=== PATIENT | female | born 1980 | race African-American/Black ===

== ENCOUNTER 2017-11-06 04:50 | Emergency (ER) | payer MEDICARE, OTHER ==
[~2017-11-06] VITALS: Ht 154.9 cm; Wt 60.3 kg
[~2017-11-06 04:50] MED LIST: NEXIUM5 MG ORAL; NORCO 5-325 TA1 EACH ORAL; NORVASC5 MG ORAL; OXYCODONE HCL10 MG ORAL
[2017-11-06] MEDS ORDERED: ROXICODONE15 MG ORAL (04:52)
[2017-11-06] MEDS ORDERED: XANAX0.25 MG ORAL (04:52)
[2017-11-06] MEDS ORDERED: ADVAIR 100-501 EACH INH (04:52)
[2017-11-06] MEDS ORDERED: Norco 5mg/325mg tab PO ONE (05:15)
[2017-11-06] MEDS ORDERED: Morphine Sulfate 4mg/ml Inj IM ONE (06:30)
[2017-11-06 06:52] VITALS: BP 140/93
--- NOTE | 2017-11-06 12:36 | Diagnostic Imaging Report ---
Indication: Pain in left hip and leg, fell in shower this morning Technique: 2 views of the left hip Comparison: none Findings: There is extensive left hip hardware, including a total hip arthroplasty prosthesis and extensive hardware apparently reducing old healed left-sided pelvic fractures. Hardware appears intact. No definite acute fractures. No dislocations. Impression: No acute bony trauma Postsurgical changes as described This agrees with the preliminary interpretation provided overnight by [facility].
--- NOTE | 2017-11-06 12:37 | Diagnostic Imaging Report ---
Indications: Pain in left hip and leg, fell in shower this morning Technique: Two views of the left femur Comparison: None Findings: Extensive left hip and pelvic surgical hardware is demonstrated. No acute fractures. Impression: No acute bony trauma
--- NOTE | 2017-11-06 12:38 | Diagnostic Imaging Report ---
Indication: Reason For Exam: PAIN Technique: 3 views of the left knee Comparison: None Findings: No acute fractures. No dislocations. No suprapatellar effusion Impression: Negative. This agrees with the preliminary interpretation provided overnight by [facility] service.
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
== END 2017-11-06 06:54 | disposition home or self-care (01) ==
LOC: EDBD 04:50 → EMR 05:04
DX: S70.12XA Contusion of left thigh, initial encounter (principal); W19.XXXA Unspecified fall, initial encounter; Y92.002 Bathroom of unspecified non-institutional (private) residence as the place of occurrence of the external cause; Z88.0 Allergy status to penicillin; F11.20 Opioid dependence, uncomplicated
CPT/HCPCS: 73502; 73552; 73562; 96372; 99284; J2270

== ENCOUNTER 2017-11-07 00:39 | Emergency (ER) | payer MEDICARE, OTHER ==
[~2017-11-07] VITALS: Ht 154.9 cm; Wt 59.0 kg
[~2017-11-07 00:39] MED LIST changes: +ADVAIR 100-501 EACH INH; +ROXICODONE15 MG ORAL; +XANAX0.25 MG ORAL
[2017-11-07 00:42] VITALS: BP 128/84
[2017-11-07] MEDS ORDERED: Albuterol/Ipratropium 3ml neb HHN ONE (01:00)
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
[2017-11-07 01:50] VITALS: BP 121/75
== END 2017-11-07 01:50 | disposition home or self-care (01) ==
LOC: EDBD 00:39 → EMR 00:58
DX: M25.552 Pain in left hip (principal); F11.20 Opioid dependence, uncomplicated; Z76.5 Malingerer [conscious simulation]; Z88.0 Allergy status to penicillin
CPT/HCPCS: 99284

== ENCOUNTER 2018-05-24 05:46 | Emergency (ER) | payer MEDICARE, OTHER ==
[~2018-05-24] VITALS: Ht 154.9 cm; Wt 59.0 kg
[2018-05-24 06:00] VITALS: BP 142/100
--- NOTE | 2018-05-24 06:11 | Emergency Room Report ---
History of Present Illness General Chief Complaint: General Complaint Source: Patient, Medical Record, EMS Present Illness HPI Is a 37-year-old female with history of chronic pain secondary to left hip replacement. She's also has a psychiatric history. She is taking oxycodone and Xanax. She presents with chief complaint of body pain and hip pain. Also complaint of chest pain. Onset for several days. No nausea no vomiting. No fever chills. Nothing made it better. Nothing made it worse. She also believed that someone is trying to hurt her. No suicidal thought homicidal thought. This is similar presentation in complaint as I saw her last time. Allergies: Coded Allergies: PENICILLINS (Verified Allergy, Unknown, 11/07/17) Patient History Past Medical History: see triage record, old chart reviewed Past Surgical History: other Pertinent Family History: none Social History: Denies: smoking Now: No Immunizations: other Reviewed Nursing Documentation: PMH: Agreed; PSxH: Agreed Nursing Documentation-PMH Past Medical History: No History, Except For Hx Hypertension: Yes Hx Diabetes: Yes Hx Gastrointestinal Problems: Yes - Gastric bypass Review of Systems Eye: Denies: eye pain, blurred vision ENT: Denies: ear pain, nose congestion, throat swelling Respiratory: Denies: cough, shortness of breath Cardiovascular: Reports: chest pain; Denies: palpitations Gastrointestinal: Denies: abdominal pain, diarrhea, nausea, vomiting Musculoskeletal: Denies: back pain, joint pain Skin: Denies: rash Neurological: Denies: headache, numbness Endocrine: Denies: increased thirst, increased urine Hematologic/Lymphatic: Denies: easy bruising All Other Systems: negative except mentioned in HPI Physical Exam Vital Signs Date Time Temp Pulse Resp B/P (MAP) Pulse Ox O2 Delivery O2 Flow Rate FiO2 05/24/18 05:46 97.0 108 18 142/100 97 Room Air 97.0 vitals with high blood pressure Sp02 EP Interpretation: reviewed, normal General Appearance: well appearing, no apparent distress, alert Head: normocephalic, atraumatic Eyes: bilateral eye PERRL, bilateral eye EOMI ENT: hearing grossly normal, normal pharynx Neck: full range of motion, supple, no meningismus Respiratory: chest non-tender, lungs clear, normal breath sounds Cardiovascular #1: regular rate, rhythm, no murmur Gastrointestinal: normal bowel sounds, non tender, no mass, no organomegaly, no bruit, non-distended Musculoskeletal: back normal, gait/station normal, normal range of motion Psychiatric: mood/affect normal Skin: warm/dry Medical Decision Making Diagnostic Impression: Primary Impression: Chronic pain Qualified Codes: G89.4 - Chronic pain syndrome Additional Impressions: Chest pain Qualified Codes: R07.9 - Chest pain, unspecified Behavior disorder Opiate dependence Qualified Codes: F11.20 - Opioid dependence, uncomplicated ER Course Patient with chronic pain. No trauma. She is walking without any problem. On the [employer] system she has numerous prescription for Xanax, Lyrica, and oxycodone. Aspirin is also atypical. No evidence of ACS, PE, dissection. Noncardiac in nature. EKG Diagnostic Results Rate: normal Rhythm: NSR ST Segments: no acute changes Rhythm Strip Diag. Results Rhythm Strip Time: 06:11 EP Interpretation: yes Rate: 85 Rhythm: NSR, no PVC's, no ectopy Last Vital Signs Date Time Temp Pulse Resp B/P (MAP) Pulse Ox O2 Delivery O2 Flow Rate FiO2 05/24/18 05:46 97.0 108 18 142/100 97 Room Air 97.0 Status: improved Disposition: HOME, SELF-CARE Condition: Stable Additional Instructions: take your pain medication and Xanax. Follow-up doctor in a week. Return if worse. CHARLOTTE MOELLER M.D. May 24, 2018 06:11
[2018-05-24 06:27] VITALS: BP 148/93
--- NOTE | 2018-05-25 13:54 | Cardiology Report ---
APPROVED REPORT EKG Measurement Heart [id number] NM [id number] Normal sinus rhythm Normal ECG
== END 2018-05-24 06:27 | disposition home or self-care (01) ==
LOC: EDBD 05:46 → EMR 06:05
DX: G89.4 Chronic pain syndrome (principal); R07.9 Chest pain, unspecified; F99 Mental disorder, not otherwise specified; E11.9 Type 2 diabetes mellitus without complications; I10 Essential (primary) hypertension; Z88.0 Allergy status to penicillin; Z98.84 Bariatric surgery status
CPT/HCPCS: 93005; 99283

== ENCOUNTER 2018-05-27 00:28 | Emergency (ER) | payer MEDICARE, OTHER ==
[2018-05-27] VITALS (7 sets, daily range): BP systolic 120–137; BP diastolic 68–84
[~2018-05-27] VITALS: Ht 152.4 cm; Wt 59.0 kg
[2018-05-27 01:12] LABS: BASOPHILS % (AUTO) 1.5 % (0.0-2.0); HEMATOCRIT 38.6 % (37.0-47.0); HEMOGLOBIN 12.4 G/DL (12.0-16.0); LYMPHOCYTES % (AUTO) 31.7 % (20.0-45.0); MEAN CORPUSCULAR VOLUME 96 FL (80-99); MONOCYTES % (AUTO) 7.3 % (1.0-10.0); NEUTROPHILS % (AUTO) 58.5 % (45.0-75.0); PLATELET COUNT 310 K/UL (150-450); RED BLOOD COUNT 4.04 M/UL (4.20-5.40); RED CELL DISTRIBUTION WIDTH 17.8 % (11.6-14.8); WHITE BLOOD COUNT 7.3 K/UL (4.8-10.8)
[2018-05-27 01:15] LABS: BILIRUBIN, URINE NEGATIVE (NEGATIVE); GLUCOSE, URINE (UA) NEGATIVE (NEGATIVE); KETONES,URINE 1+ (NEGATIVE); LEUKOCYTE ESTERASE ,URINE 3+ (NEGATIVE); NITRITE,URINE NEGATIVE (NEGATIVE); PH,URINE 5 (4.5-8.0); PROTEIN,URINE 2+ (NEGATIVE); UROBILINOGEN,URINE 1 MG/DL (0.0-1.0)
[2018-05-27 01:27] LABS: APPEARANCE,URINE CLOUDY; COLOR,URINE YELLOW
[2018-05-27 01:33] LABS: ANION GAP 12 mmol/L (5-15); BLOOD UREA NITROGEN 22 mg/dL (7-18); CALCIUM 8.3 MG/DL (8.5-10.1); CARBON DIOXIDE 24 MMOL/L (21-32); CHLORIDE 109 MMOL/L (98-107); CREATININE 0.8 MG/DL (0.55-1.30); SODIUM 144 MMOL/L (136-145)
[2018-05-27 01:38] LABS: ALANINE AMINOTRANSFERASE 17 U/L (12-78); ALBUMIN 3.7 G/DL (3.4-5.0); ALBUMIN/GLOBULIN RATIO 1.1 (1.0-2.7); ALKALINE PHOSPHATASE 60 U/L (46-116); ASPARTATE AMINO TRANSFERASE 16 U/L (15-37); BILIRUBIN,TOTAL 0.3 MG/DL (0.2-1.0)
--- NOTE | 2018-05-27 01:52 | Emergency Room Report ---
History of Present Illness General Chief Complaint: General Complaint Source: Patient Present Illness HPI Patient presents with reports of auditory hallucination Reports that she is hearing people following her Patient was here previously with some similar complaints also complaining of chronic pain diffusely Denies any homicidal or suicidal thoughts denies any shortness of breath Patient has remote psychiatric history however cannot provide specifics Is not taking any medications at this time Allergies: Coded Allergies: PENICILLINS (Verified Allergy, Unknown, 11/07/17) Patient History Past Medical History: see triage record Past Surgical History: none Reviewed Nursing Documentation: PMH: Agreed; PSxH: Agreed Nursing Documentation-PMH Hx Hypertension: Yes Hx Diabetes: Yes Hx Gastrointestinal Problems: Yes - Gastric bypass History Of Psychiatric Problem: Yes - schizo Review of Systems All Other Systems: negative except mentioned in HPI Physical Exam Vital Signs Date Time Temp Pulse Resp B/P (MAP) Pulse Ox O2 Delivery O2 Flow Rate FiO2 05/27/18 00:28 97.8 83 16 137/84 98 Room Air 97.9 Sp02 EP Interpretation: reviewed, normal General Appearance: well appearing, no apparent distress Head: normocephalic, atraumatic Eyes: bilateral eye PERRL, bilateral eye EOMI ENT: hearing grossly normal, normal pharynx, TMs + canals normal, uvula midline Neck: full range of motion, supple, no meningismus, no bony tend Respiratory: lungs clear, normal breath sounds, no rhonchi, no respiratory distress, no retraction, no accessory muscle use Cardiovascular #1: normal peripheral pulses, regular rate, rhythm, no edema, no gallop, no JVD, no murmur Gastrointestinal: normal bowel sounds, non tender, soft, no mass, no organomegaly, non-distended, no guarding, no hernia, no pulsatile mass, no rebound Genitourinary: no CVA tenderness Musculoskeletal: normal inspection Neurologic: oriented x3, responsive, seafood clerk III-XII nml as tested, motor strength/ tone normal, sensory intact Psychiatric: no suicidal/homicidal ideation, other - Patient has some disorganized thought process, also visual and auditory hallucination Skin: normal color, no rash, warm/dry, palpation normal Lymphatic: normal inspection, no adenopathy Medical Decision Making Diagnostic Impression: Primary Impression: Behavioral problem Additional Impression: UTI (urinary tract infection) ER Course Given the patient's presentation back to the emergency room given some of the auditory and visual hallucination complaints Given the patient's disorganized thought process Patient have baseline blood work initiated Shows positive for marijuana Urine sample appears contaminated however there is white blood cells and therefore antibiotics were provided patient is medically cleared At this time contact is being made with outside facilities for possible voluntary placement Labs Test 05/27/18 00:30 05/27/18 00:43 Urine Color Yellow Urine Appearance Cloudy Urine pH 5 (4.5-8.0) Urine Specific [place] 1.020 (1.005-1.035) Urine Protein 2+ (NEGATIVE) Urine Glucose (UA) Negative (NEGATIVE) Urine Ketones 1+ (NEGATIVE) Urine Blood 1+ (NEGATIVE) Urine Nitrite Negative (NEGATIVE) Urine Bilirubin Negative (NEGATIVE) Urine Urobilinogen 1 MG/DL (0.0-1.0) Urine Leukocyte Esterase 3+ (NEGATIVE) Urine RBC 2-4 /HPF (0 - 2) Urine WBC Tntc /HPF (0 - 2) Urine Squamous Epithelial Cells Many /LPF (NONE/OCC) Urine Calcium Oxalate Crystals Many /LPF (NONE) Urine Bacteria Moderate /HPF (NONE) Urine Yeast Few /HPF (NONE) Urine HCG, Qualitative Negative (NEGATIVE) Urine Opiates Screen Negative (NEGATIVE) Urine Barbiturates Screen Negative (NEGATIVE) Phencyclidine (PCP) Screen Negative (NEGATIVE) Urine Amphetamines Screen Negative (NEGATIVE) Urine Benzodiazepines Screen Negative (NEGATIVE) Urine Cocaine Screen Negative (NEGATIVE) Urine Marijuana (THC) Screen Positive (NEGATIVE) White Blood Count 7.3 K/UL (4.8-10.8) Red Blood Count 4.04 M/UL (4.20-5.40) Hemoglobin 12.4 G/DL (12.0-16.0) Hematocrit 38.6 % (37.0-47.0) Mean Corpuscular Volume 96 FL (80-99) Mean Corpuscular Hemoglobin 30.8 PG (27.0-31.0) Mean Corpuscular Hemoglobin Concent 32.2 G/DL (32.0-36.0) Red Cell Distribution Width 17.8 % (11.6-14.8) Platelet Count 310 K/UL (150-450) Mean Platelet Volume 6.4 FL (6.5-10.1) Neutrophils (%) (Auto) 58.5 % (45.0-75.0) Lymphocytes (%) (Auto) 31.7 % (20.0-45.0) Monocytes (%) (Auto) 7.3 % (1.0-10.0) Eosinophils (%) (Auto) 1.0 % (0.0-3.0) Basophils (%) (Auto) 1.5 % (0.0-2.0) Sodium Level 144 MMOL/L (136-145) Potassium Level 4.0 MMOL/L (3.5-5.1) Chloride Level 109 MMOL/L (98-107) Carbon Dioxide Level 24 MMOL/L (21-32) Anion Gap 12 mmol/L (5-15) Blood Urea Nitrogen 22 mg/dL (7-18) Creatinine 0.8 MG/DL (0.55-1.30) Estimat Glomerular Filtration Rate > 60 mL/min (>60) Glucose Level 102 MG/DL (74-106) Calcium Level 8.3 MG/DL (8.5-10.1) Total Bilirubin 0.3 MG/DL (0.2-1.0) Aspartate Amino Transf (AST/SGOT) 16 U/L (15-37) Alanine Aminotransferase (ALT/SGPT) 17 U/L (12-78) Alkaline Phosphatase 60 U/L (46-116) Total Protein 7.1 G/DL (6.4-8.2) Albumin 3.7 G/DL (3.4-5.0) Globulin 3.4 g/dL Albumin/Globulin Ratio 1.1 (1.0-2.7) Salicylates Level 1.8 ug/mL (2.8-20) Acetaminophen Level < 2 MCG/ML (10-30) Serum Alcohol < 3 mg/dL Last Vital Signs Date Time Temp Pulse Resp B/P (MAP) Pulse Ox O2 Delivery O2 Flow Rate FiO2 05/27/18 00:30 97.9 83 16 137/84 98 Room Air 97.9 Status: improved Condition: Improved Referrals: NOT CHOSEN IPA/,REFERRING (PCP) Vladimir Connor DO May 27, 2018 01:52
[2018-05-27] MEDS ORDERED: LORazepam 1mg tab ORAL ONE ×2 (02:15→12:45)
[2018-05-27] MEDS ORDERED: Cephalexin 500mg cap ORAL ONE (04:15)
[2018-05-27] MEDS ORDERED: Acetaminophen 500mg (ES) tab ORAL ONE (12:00)
[2018-05-27] MEDS ORDERED: Benztropine 1mg tab ORAL ONE (13:30)
[2018-05-27] MEDS ORDERED: Haloperidol Decanoate 50mg Inj IM ONE (13:30)
[2018-05-27] MEDS ORDERED: NITROFURANTOIN100 M2 ORAL (14:20)
[2018-05-27] MEDS ORDERED: TYLENOL325 MG ORAL (14:20)
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
== END 2018-05-27 14:24 ==
LOC: EDBD 00:28 → EMR 00:42
DX: F20.9 Schizophrenia, unspecified (principal); N39.0 Urinary tract infection, site not specified; E11.9 Type 2 diabetes mellitus without complications; I10 Essential (primary) hypertension
CPT/HCPCS: 36415; 80053; 80307; 81003; 81025; 85025; 87086; 96372; 99284; G0480; J1631; 80329